=== PATIENT | female | born 1970 ===

== ENCOUNTER 2017-08-05 09:02 | Emergency (ER) | payer OTHER ==
[2017-08-05 09:12] VITALS: BMI 23.8
[2017-08-05 09:14] VITALS: O2SAT 100
--- NOTE | 2017-08-05 09:33 | ED PDOC ---
Upper Extremity Pain/Injury Time Seen by Provider: 08/05/17 09:19 Chief Complaint (Nursing): Upper Extremity Problem/Injury Chief Complaint (Provider): Upper Extremity Problem/Injury History Per: Patient History/Exam Limitations: no limitations Onset/Duration Of Symptoms: Days (x 1 week ) Current Symptoms Are (Timing): Still Present Quality: "Pain" Additional Complaint(s): 47 year old female presents to the ED with right shoulder pain for the last week. Pain worsened last night, rendering her unable to sleep. She took 2 Advil around 8 pm last night with minimal relief. 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 Denies falls and fever. PMD: Dr. Roshni Alex MD Past Medical History Reviewed: Historical Data, Nursing Documentation, Vital Signs Vital Signs: Last Vital Signs Temp 98.2 F 08/05/17 09:12 Pulse 82 08/05/17 09:12 Resp 16 08/05/17 09:12 BP 124/62 08/05/17 09:12 Pulse Ox 100 08/05/17 09:12 - Medical History PMH: No Chronic Diseases - Surgical History Surgical History: No Surg Hx - Family History Family History: States: No Known Family Hx - Home Medications Home Medications: Ambulatory Orders Medication Instructions Recorded Lidocaine 5% [Lidoderm] 1 ea TD DAILY #10 patch 08/05/17 Naproxen [Naprosyn] 500 mg PO BID PRN #20 tablet 08/05/17 - Allergies Allergies/Adverse Reactions: Allergies Allergy/AdvReac Type Severity Reaction Status Date / Time No Known Allergies Allergy Verified 08/05/17 09:29 Review of Systems ROS Statement: Except As Marked, All Systems Reviewed And Found Negative Musculoskeletal: Positive for: Shoulder Pain (right) Physical Exam - Reviewed Nursing Documentation Reviewed: Yes Vital Signs Reviewed: Yes - Physical Exam Appears: Positive for: No Acute Distress Head Exam: Positive for: ATRAUMATIC, NORMOCEPHALIC Skin: Positive for: Normal Color, Warm, DRY Extremity: Positive for: Tenderness (to right AC joint), Other (Limited ROM secondary to pain). Negative for: Normal ROM Neurologic/Psych: Positive for: Alert, Oriented - ECG O2 Sat by Pulse Oximetry: 100 (RA) Pulse Ox Interpretation: Normal Medical Decision Making Medical Decision Making: Time; 10:39 Impression: shoulder pain Differentials include: calcification, tendonitis, bursitis Initial Plan: --Toradol 60 mg IM --Tylenol 975 mg PO --Shoulder x-ray Time; 11:30 Shoulder x-ray FINDINGS: BONES: No fracture JOINTS: Normal. Glenohumeral and acromioclavicular joints preserved. No osteoarthritis. SOFT TISSUES: Low-density calcifications project over lateral right shoulder joint calcific bursitis center calcific loose bodies are inferred. Calcific tendinopathy believe less likely. OTHER FINDINGS: None. IMPRESSION: Low-density calcifications project over lateral right shoulder joint calcific bursitis center calcific loose bodies are inferred. Calcific tendinopathy believe less likely. Scribe Attestation: Documented by Carmen Mcnamara, acting as a scribe for Yuli Esteban MD Provider Scribe Attestation: All medical record entries made by the Scribe were at my direction and personally dictated by me. I have reviewed the chart and agree that the record accurately reflects my personal performance of the history, physical exam, medical decision making, and the department course for this patient. I have also personally directed, reviewed, and agree with the discharge instructions and disposition. Disposition - Clinical Impression Clinical Impression: Calcific bursitis of shoulder - Patient ED Disposition Is Patient to be Admitted: No Doctor Will See Patient In The: Office Counseled Patient/Family Regarding: Diagnosis - Disposition Referrals: [facility] [Outside] [facility] [place] [Outside] Disposition: Routine/Home Disposition Time: 13:00 Condition: IMPROVED Prescriptions: Lidocaine 5% [Lidoderm] 1 ea TD DAILY #10 patch Naproxen [Naprosyn] 500 mg PO BID PRN #20 tablet PRN Reason: Pain, Moderate (4-7) Instructions: Shoulder Bursitis Exercises, Bursitis Forms: [facility] ([facility]), [facility] ED School/Work Excuse Print Language: CYMRAES
--- NOTE | 2017-08-05 11:31 | RAD ---
PROCEDURE: Radiographs of the Right Shoulder HISTORY: worsening pain x 1 week. dec'd ROM COMPARISON: No prior. FINDINGS: BONES: No fracture JOINTS: Normal. Glenohumeral and acromioclavicular joints preserved. No osteoarthritis. SOFT TISSUES: Low-density calcifications project over lateral right shoulder joint calcific bursitis center calcific loose bodies are inferred. Calcific tendinopathy believe less likely. OTHER FINDINGS: None. IMPRESSION: Low-density calcifications project over lateral right shoulder joint calcific bursitis center calcific loose bodies are inferred. Calcific tendinopathy believe less likely.
[2017-08-05 13:42] VITALS: BP 111/66; PULSE 78; RESP 17; TEMP 98.4
== END 2017-08-05 13:41 | disposition home or self-care (01) ==
LOC: H.ER 09:02
DX: M75.51 Bursitis of right shoulder (principal)
CPT/HCPCS: 73030; 81025; 96372; 99284; J1885